=== PATIENT | male | born 1995 | race Caucasian/White ===

== ENCOUNTER 2025-10-17 08:04 | Emergency (ER) | payer OTHER ==
[~2025-10-17] VITALS: Ht 195.6 cm; Wt 114.0 kg
[2025-10-17] MEDS ORDERED: ADVITAB PO (08:12)
[2025-10-17] MEDS: BENZONATATE 100 MG CAPSULE PO ONE (09:41)
[2025-10-17] MEDS: KETOROLAC 30 MG/ML 1 ML VIAL IV ONE (09:42)
[2025-10-17] MEDS: LIDOCAINE 5% PATCH TD ONE (09:42)
[2025-10-17 09:50] LABS: BASO # 0.0 10^3/uL (0.0-0.2); BASO % 0.3 % (0.0-1.0); EOS # 0.1 10^3/uL (0.0-0.5); EOS % 1.4 % (0.0-3.0); LYMPH # 1.7 10^3/uL (1.5-5.0); LYMPH % 18.1 % (24.0-44.0); MONO # 1.0 10^3/uL (0.0-0.8); MONO % 10.4 % (2.0-8.0); NEUTROPHILS # 6.6 10^3/uL (1.5-8.5); NEUTROPHILS % 69.4 % (36.0-66.0); PLATELET COUNT, AUTOMATED 235 10^3/uL (150-450)
[2025-10-17 10:17] LABS: C REACTIVE PROTEIN QUANTITATIV 4.02 MG/DL (<1.0); CALCIUM LEVEL 9.1 MG/DL (8.5-10.1); CARBON DIOXIDE LEVEL 29 MMOL/L (20-31); CHLORIDE LEVEL 105 MMOL/L (98-107); CREATININE FOR GFR 0.90 MG/DL (0.70-1.30); GLOMERULAR FILTRATION RATE > 90.0 (>60); POTASSIUM SERUM 4.6 MMOL/L (3.5-5.1); SODIUM LEVEL 140 MMOL/L (136-145)
[2025-10-17] MEDS ORDERED: ISOVUE-370 76% 100 ML VIAL As Ordered ONE (10:25)
[2025-10-17 11:55] VITALS: TEMP 98.9
[2025-10-17 12:15] VITALS: BP 149/89; O2SAT 96
[2025-10-17] MEDS ORDERED: AZIT-12 PO (12:21)
[2025-10-17] MEDS ORDERED: AMOX500C PO (12:21)
[2025-10-17] MEDS ORDERED: BENZ200C70 PO (12:22)
[2025-10-17] MEDS: AZITHROMYCIN 250 MG TABLET PO ONE (12:29)
[2025-10-17] MEDS: AMOXICILLIN 500 MG CAP PO ONE (12:29)
[2025-10-17] MEDS ORDERED: LIDO1PAD TOP (12:41)
== END 2025-10-17 12:39 | disposition home or self-care (01) ==
LOC: M ED 08:04
DX: J18.9 Pneumonia, unspecified organism (principal); R91.1 Solitary pulmonary nodule; J98.11 Atelectasis; F17.200 Nicotine dependence, unspecified, uncomplicated; Z79.2 Long term (current) use of antibiotics; Z79.899 Other long term (current) drug therapy
CPT/HCPCS: 36415; 71046; 71275; 80048; 85025; 85379; 85652; 86140; 93005; 96374; 99284; J1885; Q9967